=== PATIENT | female | born 1995 | race American Indian/Alaskan Native ===

== ENCOUNTER 2016-12-12 15:07 | Outpatient (CLI) | payer OTHER ==
--- NOTE | 2016-12-12 16:18 | Ultrasound Report ---
Six-month followup sonogram right breast: Comparison made with previous study dated 06/18/16. History: Breast nodule. Findings: There is hypoechoic lesion identified at 11:00 position right breast 5 cm from nipple measuring 0.6 x 0.4 x 0.5 cm. Appears well circumscribed. No significant interval change. Benign axillary lymph nodes are again identified the largest measures 1.9 x 0.6 x 1.5 cm. Smaller measures 1.2 x 0.4 x 0.8 cm. Impression: No significant interval change in size and configuration of hypoechoic nodule at 11:00 position and the lymph nodes in the right axilla. Benign findings. Annual followup sonogram recommended. BI-RADS CATEGORY: 2 = Benign ACR BI-RADS MAMMOGRAPHIC CODES: 0 = Needs additional imaging evaluation; 1 = Negative; 2 = Benign; 3 = Probably benign; 4 = Suspicious; 5 = Malignant; 6 = Known biopsy-proven malignancy COMMENT: 1. Dense breast tissue, i.e., adenosis, fibrocystic changes, etc., may obscure an underlying neoplasm. 2. Approximately 10% of cancers are not detected with mammography. 3. A negative mammography report should not delay biopsy if a clinically suspicious mass is present.
== END 2016-12-12 15:08 | disposition home or self-care (01) ==
LOC: US 15:07
PROVIDERS: ATTEND Internal Medicine
DX: N63 Unspecified lump in breast (principal)

== ENCOUNTER 2018-02-21 09:03 | Outpatient (CLI) | payer OTHER ==
--- NOTE | 2018-02-21 13:22 | Ultrasound Report ---
BILATERAL BREAST ULTRASOUND: 02/21/18 09:03:00 CLINICAL: 22 year-old with bilateral breast lumps. COMPARISON: 12/12/16 right breast ultrasound in 06/18/16 bilateral breast ultrasound. FINDINGS: Ultrasound of both breasts(including all four quadrants and the retroareolar area of each breast) was performed. An oval relatively smooth hypoechoic solid mass of the right breast at 11 o'clock 5 cm from the nipple measures 7 x 4 x 5 mm. This compares to previous measurements of 6 x 5 x 6 mm and 7 x 5 x 6 mm. No other mass or cyst of the right breast. Ultrasound of the left breast demonstrated no mass or cyst. IMPRESSION: A stable benign 7 mm right breast mass at 11 o'clock 5 cm from the nipple. Sonographic characteristics suggest benign fibroadenoma. Negative left breast. BI-RADS 2 - - Benign RECOMMENDATION: Clinical followup.
== END 2018-02-21 09:04 | disposition home or self-care (01) ==
LOC: SPVWC 09:03
PROVIDERS: ATTEND Internal Medicine
DX: N63.23 Unspecified lump in the left breast, lower outer quadrant (principal)